=== PATIENT | female | born 1980 | race Caucasian/White ===

== ENCOUNTER 2019-07-08 19:49 | Emergency (ER) | payer MEDICAID ==
[~2019-07-08] VITALS: Ht 162.6 cm; Wt 59.5 kg
[2019-07-08 19:59] VITALS: Ht 162.6 cm; Wt 59.5 kg
[2019-07-08] MEDS ORDERED: XANAX2 MG PO (20:01)
[2019-07-08] MEDS ORDERED: TORADOL10 MG PO (20:31)
[2019-07-08 21:10] VITALS: BP 126/80
== END 2019-07-08 21:10 | disposition home or self-care (01) ==
LOC: D.ER 19:49
DX: M70.842 Other soft tissue disorders related to use, overuse and pressure, left hand (principal); M70.841 Other soft tissue disorders related to use, overuse and pressure, right hand; Y93.89 Activity, other specified